=== PATIENT | female | born 1955 | race Caucasian/White ===

== ENCOUNTER 2016-08-04 17:36 | Emergency (ER) | payer MEDICARE, OTHER ==
[~2016-08-04 17:36] MED LIST: ADVAIR250 INH; AMB10 PO; ASAB PO; ASMANEX INH; ATV.5 PO; ATV1 PO; AZO CRANBERRY PO; BETAPACE80 PO; BIOTIN5 MG PO; C25 PO; CORDARONE PO; CRANBERRY1 TAB OR; CRANBERRY300 MG PO; CRANBERY450 MG PO; CRESTOR40 MG PO; CYMBALTA60 PO; DITROPAN XL15 MG PO; DRONED400 PO; DSS PO; DUONEB INH; DYMISTA NASAL S23 GM NAS; FISH-EPA1000 MG PO; FLONASE NAS; HARD NAILS PO; HYDROCODONE PO; IRON; IRON PO; JANTOVEN 5 MG PO; JANTOVEN2.5 MG PO; JANTOVEN5 MG PO; JANTOVEN7.5 MG PO; KLOR-CON M2020 MEQ PO; KLOR-CON20 MEQ PO; L20 PO; L40 PO; LEVAQUIN5T PO; LEVOTHYROXIN112 MCG PO; LOFIB160 PO; LOFIBRA134 MG PO; LOFIBRA160 MG PO; LOP100 PO; LOP25 PO; LOP50 PO; LORT7 PO; LORTAB 5 PO; MOBIC15 MG PO; MOBIC7.5 PO; MULTIPLE VIT PO; MULTIVIT/MIN PO; MULTIVITAMI1 PO; NEUR100 PO; NEUR300 PO; NORCO1 TA2 PO; NORCO1 TAB PO; NUVIGIL150 MG PO; NUVIGIL250 MG PO; P20 PO; PACERONE200 MG PO; PRADAXA75 MG PO; PRILO PO; PRILOSEC OTC20 MG PO; PRIN20 PO; RYTHMOL225 MG PO; SINGULAIR1 PO; SPIRO25 PO; SYN1 PO; SYN112 PO; SYN88 PO; SYNTHROID; TIROSINT112 MCG PO; ULTRAM50 PO; VESICARE10 MG PO; VIT C; VIT C PO; VITC500 PO; VITRON-C OR; VITRON-C PO; VOLTAREN1 % TOP; XARELTO15 MG PO; XARELTO20 MG PO; ZANTAC150 MG PO; ZAROX2.5B PO; ZYRTEC ALLGY10 MG PO; ZYRTEC CHIL1 PO; [UNRECOGNIZED DRUG - OTHER] PO
[2016-08-04 17:46] LABS: BASOPHILS 0.2 %; BASOPHILS ABSOLUTE 0.01 10/3/uL (0.0-0.16); EOSINOPHILS 1.5 %; EOSINOPHILS ABSOLUTE 0.08 10/3/uL (0.0-0.53); HEMATOCRIT 41.8 % (36.0-48.0); HEMOGLOBIN 13.8 g/dL (12.0-16.0); IMMATURE GRANULOCYTES 0.4 %; IMMATURE GRANULOCYTES ABSOLUTE 0.02 10/3/uL (0.0-0.11); LYMPHOCYTES 21.2 %; LYMPHOCYTES ABSOLUTE 1.12 10/3/uL (0.67-4.30); MEAN CORPUSCULAR HEMOGLOB 30.8 pg (26.0-34.0); MEAN CORPUSCULAR VOLUME 93.3 fL (80-100); MEAN PLATELET VOLUME 10.1 fL (9.2-13.0); MONOCYTES 9.8 %; MONOCYTES ABSOLUTE 0.52 10/3/uL (0.21-1.20); NEUTROPHILS 66.9 %; NEUTROPHILS ABSOLUTE 3.53 10/3/uL (2.02-8.40); PLATELET COUNT 184 10/3/uL (150-400); RBC DISTRIBUTION WIDTH 14.5 % (12.0-16.0); RED CELL COUNT 4.48 10/6/uL (4.0-5.6); WHITE BLOOD CELLS 5.3 10/3/uL (4.5-10.5)
[2016-08-04 17:54] LABS: MANUAL DIFF NO %
[2016-08-04 17:55] LABS: INTERNATIONAL NORMAL RATI 1.6 UNITS (-); PARTIAL THROMBO TIME 30.9 SEC (22.5-37.2); PROTIME (NOT ORD) 19.2 SEC (12.0-14.5)
[2016-08-04 18:03] LABS: BUN (BLOOD UREA NITROGEN) 32 MG/DL (6-23); CALCIUM, SERUM 9.3 MG/DL (8.5-10.4); CHLORIDE, SERUM 107 MMOL/L (96-112); CO2 (CARBON DIOXIDE) 32 MMOL/L (24-34); CREATININE 1.52 MG/DL (0.55-1.02); GFR AFRICAN AMERICAN 42 ML/MIN (>=60); GFR NON AFRICAN AMERICAN 36 ML/MIN (>=60); GLUCOSE, SERUM 116 MG/DL (60-99); POTASSIUM, SERUM 3.8 MMOL/L (3.5-5.3); SODIUM, SERUM 143 MMOL/L (135-148)
[2016-08-04 18:04] LABS: CHEST PAIN PROFILE TAT 0 Hrs 22 Mins; TROPONIN I 1.28 NG/ML (<0.05)
[2016-08-21] MEDS ORDERED: PACERONE200 MG PO (08:33)
[2016-08-21] MEDS ORDERED: NEUR400 PO (08:36)
[2016-08-21] MEDS ORDERED: BIOTIN5 MG PO (08:41)
[2016-08-21] MEDS ORDERED: ISORDIL10 (08:41)
== END 2016-08-04 23:00 | disposition left against medical advice (07) ==
LOC: ER 17:36
PROVIDERS: Emergency Medicine
DX: R07.9 Chest pain, unspecified (principal); Z53.21 Procedure and treatment not carried out due to patient leaving prior to being seen by health care provider
CPT/HCPCS: 71020; 80048; 83735; 84484; 85025; 85610; 85730; 93005